=== PATIENT | male | born 1960 | race Caucasian/White ===

== ENCOUNTER 2020-08-18 19:44 | Observation (INO) | payer OTHER ==
[~2020-08-18] VITALS: Ht 175.3 cm; Wt 93.9 kg
[~2020-08-18 19:44] MED LIST: ASPIRIN325 PO; BETAPACE80 MG PO; CENTRUM SILVER1 EAC2 PO; DILTIAZEM 24HR180 M1 PO; FAMOTIDINE PO; FLONASE 0.05%50 MCG NASAL; HYDROCODON-ACE1 EAC7 PO; IBUPROFEN 200200 M1 PO; OMEPRAZOLE20 M1 PO; OXYCODONE HCL 55 MG PO; RYTHMOL SR225 MG PO; TOPROL XL25 MG PO; VITAMIN D1000 UNI1 PO
[2020-08-18 20:00] VITALS: BP 90/61
[2020-08-18 20:05] LABS: ABSOLUTE BASOPHILS 0.1 thou/uL (0.0-0.2); ABSOLUTE EOSINOPHILS 0.2 thou/uL (0.0-0.7); ABSOLUTE LYMPHOCYTES 3.1 thou/uL (0.8-5.3); ABSOLUTE MONOCYTES 0.7 thou/uL (0.0-1.2); ABSOLUTE NEUTROPHILS 5.4 thou/uL (1.6-8.1); EOSINOPHILS 2.5 %; HEMATOCRIT 44.2 % (42.0-52.0); HEMOGLOBIN 14.9 gm/dL (14.0-18.0); LYMPHOCYTES 32.1 %; MCH 29.6 pg (26.0-34.0); MCHC 33.8 g/dL (28.0-37.0); MCV 87.6 fL (80.0-100.0); MONOCYTES 7.6 %; MPV 7.4 fl. (7.2-11.1); NUCLEATED RBCS 0 /100WBC; PLATELET COUNT* 248 thou/uL (150-400); POLYS 56.8 %; RBC 5.04 mil/uL (4.50-6.00); RDW-CV 13.6 % (10.5-14.5); WBC 9.6 thou/uL (4.0-11.0)
[2020-08-18 20:13] LABS: CALCIUM 10.1 mg/dL (8.5-10.1); CREATININE 1.1 mg/dL (0.6-1.3); POTASSIUM 3.7 mmol/L (3.5-5.1)
[2020-08-18 20:15] LABS: PROTIME 10.7 Seconds (9.20-11.50)
[2020-08-18 20:30] LABS: ALBUMIN 4.1 g/dL (3.4-5.0); MAGNESIUM 2.1 mg/dL (1.8-2.4); TOTAL BILIRUBIN 0.6 mg/dL (<0.1-1.0); TOTAL PROTEIN 7.7 g/dL (6.4-8.2)
[2020-08-18 21:18] LABS: URINE BILIRUBIN NEGATIVE (Negative); URINE BLOOD NEGATIVE (Negative); URINE CLARITY CLEAR; URINE COLOR YELLOW; URINE GLUCOSE-RANDOM NEGATIVE (Negative); URINE KETONES NEGATIVE (Negative); URINE LEUKOCYTES-REFLEX NEGATIVE (Negative); URINE NITRITE-REFLEX NEGATIVE (Negative); URINE PROTEIN NEGATIVE (Negative); URINE UROBILINOGEN 0.2 E.U./dl (0.2-1.0)
[2020-08-18 22:44] VITALS: BP 106/70
[2020-08-19 04:00] VITALS: BP 122/71
[2020-08-19 07:40] VITALS: BP 151/84
--- NOTE | 2020-08-19 09:06 | NUR ---
CM SPOKE TO THE PT TO DISCUSS CM ASSESSMENT. PT A&O, INDEPENDENT WITH ADL'S, ACTIVE AND WORKS OUTSIDE THE HOME. PT RESIDES AT HOME WITH SPOUSE. PT OWNS CPAP, BUT INFORMS THAT HE HAS NOT USED IT MUCH LATELY. NO OTHER DME. PT HAS 0 HX OF HH OR SNF. NO D/C PLANNING NEEDS ANTICIPATED. CM WILL REMAIN AVAILBLE TO ASSIST AND FOLLOW NEEDED.
--- NOTE | 2020-08-19 11:27 | EXE ---
[place] [address] STRESS ECHOCARDIOGRAM Name: JEFF HINTON Room: [address] MKennedyRKennedy#: [id number] Admission: 08/18/20 Attend Phys: David Jennings, Discharge: Date of : 60 Date of Service: 08/19/20 1127 Report #: [id number] THIS REPORT FOR: cc: FAM - No family physician/PCP FAM - No family physician/PCP James Faust MD [facility] ~ APPROVED REPORT Study performed: 08/19/2020 09:22:03 Exam: Stress Echocardiogram Indication: Chest pain Patient Location: In-Patient Stress Nurse: Rekha Maharaj RN Room #: 223 Supervising Physician: James Faust MD Status: routine Ht: 5 ft 9 in HR: 55 bpm BP: 140/79 mmHg Rhythm: NSR Medical History Medications: Amiodarone, Dilitiazem Allergies: No known drug allergies Cardiac Risk Factors: age,, Tobacco History (Former), FHX of CAD Procedure The patient underwent an Exercise Stress Test using the Bhupendra Protocol. Blood pressure, heart rate, and EKG were monitored. An Echocardiogram was performed by geological technician in four stages in quad fashion. At peak stress, four selected images were obtained and placed side by side with resting images for comparison. Echo Enhancing Agent Indication: Endocardial border delineation Agent(s) / Amount(s) Used: Optison 8 cc Stress Test Details Stress Test: Exercise stress testing was performed using a Bhupendra protocol. HR Resting HR: 55 bpm Max Heart Rate (APMHR): 160 [place] [address] STRESS ECHOCARDIOGRAM Name: JEFF HINTON Room: [address] Marta#: [id number] Admission: 08/18/20 Attend Phys: David Jennings, Discharge: Date of : 60 Date of Service: 08/19/20 1127 Report #: [id number] Max HR Achieved: 152 bpm Target HR (85% APMHR): 136 bpm % of APMHR: 95 Recovery HR: 63 bpm HR response to stress: Normal HR response to stress BP Resting BP: 140/79 mmHg Max BP: 261/84 mmHg Recovery BP: 165/65 mmHg BP response to stress: Normal blood pressure response to stress. ECG Resting ECG: Sinus rhythm minor IVCD right Stress ECG: No ischemic ST-T changes Arrhythmia: Occasional isolated PACs and PVCs Clinical Reason for Termination: Dyspnea, fatigue Exercise duration: 7 min sec Highest Stage Achieved: Stage 3: 3.4 mph at 14% grade. Exercise capacity: 8.01 METs Pre-Stress Echo The resting Echocardiogram showed normal left ventricular contractility with an estimated Ejection Fraction of about 55-60%. Normal wall motion in all segments on baseline images. Post-Stress Echo The stress Echocardiogram showed normal left ventricular contractility with an estimated Ejection Fraction of about >70%. Normal augmentation of wall motion in all segments on post stress images. Conclusion Clinical Response: Non-ischemic Exercise Capacity: Average Stress ECG Response: Non-ischemic Stress Echo Images: [place] [address] STRESS ECHOCARDIOGRAM Name: MARY JANEJEFF Room: [address]#: [id number] Admission: 08/18/20 Attend Phys: David Jennings, Discharge: Date of : 60 Date of Service: 08/19/201126 Report #: [id number] Other Information Study Quality: Margret Jo used for endocardial definition <ELECTRONICALLY SIGNED> By: James Faust MD, FACC 08/19/201126 26 26 James Faust MD, FACC /INF
[2020-08-19 11:56] VITALS: BP 141/75
[2020-08-19] MEDS ORDERED: FLECAINIDE ACET50 M1 PO (13:38)
[2020-08-19 16:02] VITALS: BP 141/75
[2020-08-19 16:38] VITALS: BP 153/84
--- NOTE | 2020-08-19 17:05 | EKG ---
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: : 1960 Requested By: Shy Vazquez Order Number: [id number] Malissa MD: Chris Matias Measurements Intervals [place] Rate: 58 P: 59 TN: 145 QRS: 13 QRSD: 108 T: 59 QT: 454 QTc: 446 Interpretive Statements Sinus rhythm RSR' in V1 or V2, probably normal variant Minimal ST depression, lateral leads Compared to ECG 08/11/2014 08:16:40 RSR' in V1 or V2 now present ST (T wave) deviation now present Sinus bradycardia no longer present Sinus arrhythmia no longer present Electronically Signed On 08-19-2020 17:05:16 DISPLAY COORDINATOR by Chris Matias [email or web address] <ELECTRONICALLY SIGNED> By: Chris Matias MD, FACC 08/19/20 1705 1015 1015 Chris Matias MD, FAC /EPI
--- NOTE | 2020-08-19 17:05 | EKG ---
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 : 1960 Requested By: Jeannie Clemente Order Number: [id number] MD: Chris Matias Measurements Intervals [place] Rate: 162 P: MA: QRS: 8 QRSD: 97 T: 45 QT: 297 QTc: 488 Interpretive Statements Atrial fibrillation with rapid V-rate RSR' in V1 or V2, probably normal variant ST depression, probably rate related Compared to ECG 08/11/2014 08:16:40 RSR' in V1 or V2 now present ST (T wave) deviation now present Sinus bradycardia no longer present Sinus arrhythmia no longer present Electronically Signed On 08-19-2020 17:04:57 CASH APPLICATIONS COORDINATOR by Chris Matias [email or web address] <ELECTRONICALLY SIGNED> By: Chris Matias MD, FACC 08/19/20 1704 54 54 Chris Matias MD, FACC /EPI
== END 2020-08-19 17:00 | disposition home or self-care (01) ==
LOC: M.ERS 19:44 → M.TBA-ER 21:21 → M.2W 21:21
PROVIDERS: Emergency Medicine; ADMIT Internal Medicine; ATTEND Internal Medicine
DX: I48.20 Chronic atrial fibrillation, unspecified (principal); R07.89 Other chest pain; I10 Essential (primary) hypertension; E78.5 Hyperlipidemia, unspecified; K21.9 Gastro-esophageal reflux disease without esophagitis; F17.290 Nicotine dependence, other tobacco product, uncomplicated; Z79.899 Other long term (current) drug therapy; Z79.82 Long term (current) use of aspirin; Z20.828 Contact with and (suspected) exposure to other viral communicable diseases